=== PATIENT | female | born 1970 | race Caucasian/White ===

== ENCOUNTER → 2022-09-11 13:14 | Outpatient (CLI) | payer OTHER, MEDICAID, SELFPAY ==
--- NOTE | 2022-09-11 13:16 | DI.RAD.S_ITS ---
PROCEDURE: XR KNEE RT 3V INDICATIONS: Knee pain TECHNIQUE: 3 views of the knee were acquired. COMPARISON: None. FINDINGS: Bones: No fractures or dislocations. No suspicious bony lesions. There is mild medial femorotibial joint space narrowing seen, with associated remodeling changes including subchondral sclerosis and osteophyte formation along the jointline. Soft tissues: No significant joint effusion. No suspicious soft tissue calcifications. IMPRESSION: Mild degenerative changes are seen by plain film, without an acute posttraumatic abnormality. If it would be helpful for clinical management decision making, please consider a dedicated, scheduled knee MRI for further evaluation (assuming that there is no contraindication). Dictated by: Jayden Daley M.D. on 09/11/2022 at 17:24 Approved by: Jayden Daley M.D. on 09/11/2022 at 17:25
--- NOTE | 2022-09-11 13:16 | DI.RAD.S_ITS ---
PROCEDURE: XR WRIST RT MIN 3V INDICATIONS: Wrist pain TECHNIQUE: 4 views of the wrist were acquired. COMPARISON: [facility], [place], XR KNEE RT 3V, 09/11/2022, 13:18. [facility], , WRIST MINIMUM 3 VIEWS RIGHT, 03/08/2008, 10:21. FINDINGS: Bones: No fractures or dislocations. No suspicious bony lesions. Degenerative changes are seen, which are worst involving the radial aspect of the carpus. Scaphoid view: No navicular fractures are seen. Soft tissues: No suspicious soft tissue calcifications. IMPRESSION: No displaced fractures are seen. If there is snuffbox tenderness (or other clinical suspicion for a fracture not seen on these images) then a repeat examination would be recommended in 10 to 14 days, following splinting. Degenerative changes are seen, which are worst involving the radial aspect of the carpus. Dictated by: Jayden Daley M.D. on 09/11/2022 at 17:25 Approved by: Jayden Daley M.D. on 09/11/2022 at 17:26
== END ==
PROVIDERS: Family Provider Physician Assistant; PCP Physician Assistant; Referring Provider Nurse Practitioner Family; Visit Provider Nurse Practitioner Family
DX: M17.11 Unilateral primary osteoarthritis, right knee (principal); M25.531 Pain in right wrist; V89.2XXA Person injured in unspecified motor-vehicle accident, traffic, initial encounter
CPT/HCPCS: 73110; 73562

== ENCOUNTER → 2022-11-22 09:45 | Outpatient (CLI) | payer OTHER, MEDICAID, SELFPAY ==
--- NOTE | 2022-11-22 09:47 | DI.RAD.S_ITS ---
PROCEDURE: XR ANKLE RT MIN 3V INDICATIONS: right foot and ankle pain TECHNIQUE: 3 views of the ankle were acquired. COMPARISON: [facility], , XR FOOT RT MIN 3V, 11/22/2022, 9:54. FINDINGS: Bones: No fractures or dislocations. Ankle mortise is normally aligned. No suspicious bony lesions. Soft tissues: No tibiotalar joint effusion. Achilles tendon appears normal. Lateral soft tissue swelling. IMPRESSION: No evidence acute bony abnormality. If clinical suspicion and/or symptoms persist, further assessment with repeat plain films, or advanced imaging (e.g., CT, MRI, or bone scan) may be helpful for further assessment. Dictated by: Ziyad Hinkle M.D. on 11/22/2022 at 10:39 Approved by: Ziyad Hinkle M.D. on 11/22/2022 at 10:41
--- NOTE | 2022-11-22 09:47 | DI.RAD.S_ITS ---
PROCEDURE: XR FOOT RT MIN 3V INDICATIONS: right foot and ankle pain TECHNIQUE: 3 views of the foot were acquired. COMPARISON: None. FINDINGS: Bones: No fractures or dislocations. No suspicious bony lesions. 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 Soft tissues: No tibiotalar joint effusion. Achilles tendon appears normal. 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 No evidence acute bony abnormality. Dictated by: Ziyad Hinkle M.D. on 11/22/2022 at 10:37 Approved by: Ziyad Hinkle M.D. on 11/22/2022 at 10:39
[2022-11-22 12:05] LABS: Alanine Aminotransferase 20 IU/L (<35); Albumin Globulin Ratio 1.1 (1.0-2.8); Alkaline Phosphatase 121 U/L (38-126); Aspartate Aminotransferase 21 IU/L (14-36); BUN Creatinine Ratio 24.6 (6-22); Bilirubin Total 0.4 mg/dL (0.2-1.3); Blood Urea Nitrogen 17 mg/dL (7-17); Calcium 9.1 mg/dL (8.4-10.2); Carbon Dioxide 25 mmol/L (22-32); Chloride 103 mmol/L (98-107); Estimated Glomerular Filt Rate > 60 mL/min (>60); Globulin 3.7 g/dL (1.7-4.1); Glucose 100 mg/dL (70-100); HEMOLYSIS < 15 (0-50); Potassium 4.5 mmol/L (3.4-5.1); Sodium 138 mmol/L (137-145); Total Protein 7.7 g/dL (6.3-8.2); Uric Acid 4.2 mg/dL (2.5-6.2)
== END ==
PROVIDERS: Family Provider Physician Assistant; Referring Provider Registered Nurse; Visit Provider Registered Nurse
DX: M25.571 Pain in right ankle and joints of right foot (principal); M19.071 Primary osteoarthritis, right ankle and foot
CPT/HCPCS: 36415; 73610; 73630; 80053; 84550

== ENCOUNTER 2022-11-25 18:48 | Emergency (ER) | payer OTHER, MEDICAID, SELFPAY ==
[2022-11-25 19:07] VITALS: BP 157/76; PULSE 96; RESP 16; TEMP 37.2; O2SAT 99; BMI 28.7
--- NOTE | 2022-11-25 21:04 | ED.SKABFB ---
HPI - Skin/Abscess/Foreign Bdy General Chief complaint: Skin/Abscess/Foreign Body Stated complaint: Cellulitis Time Seen by Provider: 11/25/22 21:04 Source: patient Mode of arrival: Wheelchair Limitations: no limitations History of Present Illness HPI narrative: This is a 52-year-old female with history of hypertension, anxiety depression who presents with complaint of redness and pain in her right ankle. Pain started on Tuesday, redness started on Tuesday. Patient states she was seen by walk-in clinic had x-rays, lab work and was started on antibiotic. Record shows she was started on Bactrim. Her family circled the area of redness on her ankle Tuesday and it has continued to progress over the dorsum of her foot and she is starting to have pain progressing up her calf. Patient denies fevers. She is had chills. No chest pain or shortness of breath. No nausea or vomiting, no GI or urinary symptoms. Patient has not had any other changes. Patient does not recall any other injuries, no cuts scrapes. She is not had similar issues in the past. No known drug allergies. She does use tobacco, occasional alcohol, no illicit. Denies any injection or IV drugs. Related Data Home Medications Medication Instructions Recorded Confirmed Trazodone Hydrochloride (Trazodone 200 mg PO Q DAY ##0 08/04/10 11/22/22 HCl) lisinopril 20 mg tablet (Prinivil) 20 mg PO Q DAY ##0 10/01/10 11/22/22 alprazolam 0.5 mg tablet (Xanax) 0.5 mg PO Q4HP ##0 02/04/13 11/22/22 bupropion HCl 150 mg tablet,12 hr 150 mg PO BID ##0 02/07/13 11/22/22 sustained-release (Wellbutrin SR) ibuprofen 600 mg tablet 600 mg PO Q6HP ##0 02/07/13 11/22/22 Previous Rx's Medication Instructions Recorded cyclobenzaprine 5 mg tablet 5 mg PO TID PRN muscle spasm #20 09/11/22 tabs sulfamethoxazole 800 1 tab PO BID Cellulitis 10 days 11/22/22 mg-trimethoprim 160 mg tablet #20 tabs (Bactrim DS) clindamycin HCl 300 mg capsule 300 mg PO Q6H #40 caps 11/25/22 Allergies Allergy/AdvReac Type Severity Reaction Status Date / Time No Known Drug Allergies Allergy Verified 11/25/22 19:10 Review of Systems Review of Systems ROS Unobtainable: All systems reviewed & are unremarkable except as noted in HPI and below Patient History Surgical History Status post tubal ligation Social History Smoking Status: Current every day smoker Smoking Status: Current every day smoker tobacco type: cigarettes alcohol intake frequency: 0-2 drinks per day Substance Use Type: does not use Exam Narrative Exam Narrative: GENERAL: Alert and oriented x three, female in mild distress. HEENT: Head normocephalic, atraumatic, EOMI, pupils reactive, face symmetric, moist mucous membranes NECK: Supple, full range of motion CARDIOVASCULAR: Regular rate and rhythm without murmurs, rubs or gallops. RESPIRATORY: Breath sounds equal bilaterally, no wheezes rales or rhonchi. ABDOMEN: Soft, nontender. Normoactive bowel sounds all 4 quadrants. No guarding or rebound, rigidity, no mass : No CVA tenderness EXTREMITIES: Normal range of motion, no clubbing, patient has swelling over the lateral ankle, redness posterior tracking over the dorsum of the foot. There is some mild swelling. Patient is tender to touch. No fluctuance, no induration. Mild edema of the calf. Neurovascularly intact. 2+ dorsalis pedis. NEUROLOGICAL: Cranial nerves II through XII grossly intact. Moving all extremities SKIN: Warm, dry, no petechiae, no rashes or lesions otherwise noted. Initial Vital Signs Initial Vital Signs: Vital Signs Temperature 98.9 F 11/25/22 19:07 Pulse Rate 96 H 11/25/22 19:07 Respiratory Rate 16 11/25/22 19:07 Blood Pressure 157/76 H 11/25/22 19:07 Pulse Oximetry 99 11/25/22 19:07 Oxygen Delivery Method Room Air 11/25/22 19:07 Course Orders Ordered: ED Orders 11/25/22 21:13 US periph venous low extrem rt Stat 11/25/22 21:30 BMP [Basic Metabolic Panel] Stat CBC Auto Diff [Complete Blood Count AUTO DIFF] Stat Lactate (Lactic Acid) Stat Procalcitonin Stat 11/25/22 21:55 Blood Culture Stat Discontinued Medications Hydrocodone Bitart/Acetaminophen (Hydrocodone/Acet 5/325 Prepack) 1 bottle MISC SEEINSTR ONE Stop: 11/25/22 23:29 Last Admin: 11/25/22 23:31 Dose: 1 bottle Documented By: ANGIE Clindamycin Phosphate 900 mg/ (Sodium Chloride) 106 mls @ 106 mls/hr IV NOW ONE Stop: 11/25/22 21:14 Last Infusion: 11/25/22 22:58 Dose: 0 mls/hr Documented By: Admin: 11/25/22 21:57 Dose: 106 mls/hr Documented By: ANGIE Ketorolac Tromethamine (Ketorolac 30 Mg/Ml Vial) 15 mg IV NOW ONE Stop: 11/25/22 21:12 Last Admin: 11/25/22 21:38 Dose: 15 mg Documented By: LYDIA Vital Signs Vital signs: Vital Signs - 8 hr 11/25/22 23:36 Pulse Rate 83 Respiratory Rate 18 Blood Pressure 128/74 Pulse Oximetry 94 Oxygen Delivery Method Room Air MDM - Skin/Abscess/Foreign Bdy Lab Data 11/25/22 21:30 11/25/22 21:30 Labs: Lab Results 11/25/22 11/25/22 11/25/22 Range/Units 21:30 21:30 21:30 WBC 11.9 H (4.5-11.0) X10^3/uL RBC 4.35 (4.0-5.2) X10^6/uL Hgb 13.0 (12.0-16.0) g/dL Hct 38.7 (36-46) % MCV 89.1 (80-100) fL MCH 30.0 (26-34) PG MCHC 33.7 (30-36) % RDW 13.5 (11.6-14.8) % Plt Count 304 (150-400) X10^3/uL Neut % (Auto) 57.8 (50-75) % Lymph % (Auto) 29.9 (25-40) % Hidalgo % (Auto) 7.6 (3-14) % Eos % (Auto) 3.9 (2-4) % Baso % (Auto) 0.8 (0-2) % Neut # (Auto) 6900 (1441-8312) /uL Lymph # (Auto) 3600 (1928-8381) /uL Hidalgo # (Auto) 900 (0-900) /uL Eos # (Auto) 500 H (0-450) /uL Baso # (Auto) 100 (0-100) /uL Sodium 136 L (137-145) mmol/L Potassium 4.3 (3.4-5.1) mmol/L Chloride 104 (98-107) mmol/L Carbon Dioxide 25 (22-32) mmol/L BUN 19 H (7-17) mg/dL Creatinine 0.74 (0.52-1.04) mg/dL Estimated GFR > 60 (>60) mL/min BUN/Creatinine Ratio 25.7 H (6-22) Glucose 89 (70-100) mg/dL Lactate 0.8 (0.7-2.1) mmol/L Calcium 9.0 (8.4-10.2) mg/dL Procalcitonin 0.03 (<0.5) ng/mL Imaging Data US - DVT: Radiologist's Impression: Close Vascular Ultrasound (Signed) Waldo Rudd - 11/25/22 Foot X-Ray (Signed) Ziyad Hinkle - 11/22/22 Ankle X-Ray (Signed) Ziyad Hinkle - 11/22/22 Wrist X-Ray (Signed) Jayden Daley - 09/11/22 Knee X-Ray (Signed) Jayden Daley - 09/11/22 [place] [address] Ultrasound Report Signed Patient: Ana Cabrera MR#: [id number] : 1970 Acct:[id number] Age/Sex: 52 / F Date of Service: 11/25/22 Loc: ED Accession Number: [id number] ?? Procedure: US periph venous low extrem rt Ordering Provider: Alida Gamez D.O. PROCEDURE:? US PERIPH VENOUS LOW EXTREM RT ? INDICATIONS:? RIGHT ANKLE LATERAL PAIN, REDNESS, AND SWELLING. ? TECHNIQUE:? Real-time imaging, as well as color and pulse Doppler interrogation, were performed of the lower extremity deep veins from the inguinal ligament to the popliteal fossa.? ? COMPARISON:? None. ? FINDINGS:? The common femoral, femoral and popliteal veins are normally compressible, and free of intraluminal thrombus.? Color and pulse Doppler demonstrate normal phasic intraluminal flow.? There is normal augmentation response to distal compression maneuver. ? ? IMPRESSION:? ? 1. No evidence of deep venous thrombosis in the right lower extremity. ? ? Dictated by: Waldo Rudd M.D. on 11/25/2022 at 23:18 ? ? Approved by: Waldo Rudd M.D. on 11/25/2022 at 23:18?? [facility] Narrative Medical decision making narrative: This is a 52-year-old female presents with complaint of redness of the ankle and foot that has been progressive. She is been on oral Bactrim. No obvious source for infection. Patient has swelling and pain tracking up into the calf. DVT seems less likely but not impossible so ultrasound was ordered. Labs patient was given dose IV antibiotic. Patient has mild leukocytosis, procalcitonin negative, lactate negative,, BUN 19, 136 sodium. Patient has. Discussed with patient plan for discharge with new antibiotic.Discussed with patient she is had 1 round of antibiotics for about 5 days without any improvement, if she fails with 2nd round of antibiotic plan for return for likely admission. Patient prefers to return home, will change antibiotic with strict return precautions if not improving over the next 24-48 hours or if additional worsening. Discharge Plan Departure Patient Disposition: Home Clinical Impression: Cellulitis of leg, right Instructions: DI for Cellulitis -- Adult Activity Restrictions/Additional Instructions: Follow-up for recheck in the next 24-48 hours if your symptoms are not rapidly improving. Stop your current antibiotic of Bactrim. Start the new antibiotic he had been prescribed. Take antibiotics until completely gone. You may take pain medication 1-2 tablets every 6 hours as needed. This medication can make you sleepy do not drive, perform hazardous activities or make any major decisions while taking it. This medication will make you constipated please take a stool softener once to twice daily until stools are soft and regular. Prescription sent to [facility] in [place]. Please return for fevers if redness is spreading, if you are having increasing pain, swelling, nausea or vomiting, new chest pain or shortness of breath or other new or concerning changes. Prescriptions: New clindamycin HCl 300 mg capsule 300 mg PO Q6H Qty: 40 0RF No Action cyclobenzaprine 5 mg tablet 5 mg PO TID PRN (Reason: muscle spasm) Qty: 20 0RF Trazodone Hydrochloride (Trazodone HCl) 200 mg PO Q DAY Qty: 0 lisinopril [Prinivil] 20 MG tablet 20 mg PO Q DAY Qty: 0 alprazolam [Xanax] 0.5 MG tablet 0.5 mg PO Q4HP Qty: 0 bupropion HCl [Wellbutrin SR] 150 MG tablet extended release 12 hr 150 mg PO BID Qty: 0 ibuprofen 600 MG tablet 600 mg PO Q6HP Qty: 0 sulfamethoxazole-trimethoprim [Bactrim DS] 800-160 mg tablet 1 tab PO BID 10 Days Qty: 20 0RF Referrals: Miscellaneous,Doctor, MD [Primary Care Provider] - Stand Alone Forms: Patient Portal/API
--- NOTE | 2022-11-25 21:13 | DI.US.S_ITS ---
PROCEDURE: US PERIPH VENOUS LOW EXTREM RT INDICATIONS: RIGHT ANKLE LATERAL PAIN, REDNESS, AND SWELLING. TECHNIQUE: Real-time imaging, as well as color and pulse Doppler interrogation, were performed of the lower extremity deep veins from the inguinal ligament to the popliteal fossa. COMPARISON: None. FINDINGS: The common femoral, femoral and popliteal veins are normally compressible, and free of intraluminal thrombus. Color and pulse Doppler demonstrate normal phasic intraluminal flow. There is normal augmentation response to distal compression maneuver. IMPRESSION: 1. No evidence of deep venous thrombosis in the right lower extremity. Dictated by: Waldo Rudd M.D. on 11/25/2022 at 23:18 Approved by: Waldo Rudd M.D. on 11/25/2022 at 23:18
[2022-11-25] MEDS: KETOROLAC 30 MG/ML VIAL 15 MG IV (21:38)
[2022-11-25 21:39] LABS: Add Manual Diff / Slide Review NO; Basophils Absolute Auto 100 /uL (0-100); Basophils Percent Auto 0.8 % (0-2); Eosinophils Absolute Auto 500 /uL (0-450); Eosinophils Percent Auto 3.9 % (2-4); Hematocrit 38.7 % (36-46); Lymphocytes Absolute Auto 3600 /uL (1100-4500); Lymphocytes Percent Auto 29.9 % (25-40); Mean Corpuscular HGB Conc 33.7 % (30-36); Mean Corpuscular Volume 89.1 fL (80-100); Monocytes Absolute Auto 900 /uL (0-900); Monocytes Percent Auto 7.6 % (3-14); Neutrophils Absolute Auto 6900 /uL (1500-7000); Neutrophils Percent Auto 57.8 % (50-75); Platelet Count 304 X10^3/uL (150-400); Red Blood Cell Count 4.35 X10^6/uL (4.0-5.2); Red Cell Distribution Width 13.5 % (11.6-14.8); White Blood Cell Count 11.9 X10^3/uL (4.5-11.0)
[2022-11-25 21:48] LABS: Lactate (Lactic Acid) 0.8 mmol/L (0.7-2.1)
[2022-11-25 21:49] LABS: BUN Creatinine Ratio 25.7 (6-22); Blood Urea Nitrogen 19 mg/dL (7-17); Carbon Dioxide 25 mmol/L (22-32); Chloride 104 mmol/L (98-107); Estimated Glomerular Filt Rate > 60 mL/min (>60); Glucose 89 mg/dL (70-100); HEMOLYSIS < 15 (0-50); Potassium 4.3 mmol/L (3.4-5.1); Sodium 136 mmol/L (137-145)
[2022-11-25] MEDS: CLINDAMYCIN 900 MG in SODIUM CHLORIDE 0.9% 100 ML 106 MG IV (21:57)
[2022-11-25 22:06] LABS: Procalcitonin 0.03 ng/mL (<0.5)
[2022-11-25] MEDS: HYDROCODONE/ACET 5/325 PREPACK 1 BOTTLE MISC (23:31)
[2022-11-25 23:36] VITALS: BP 128/74; PULSE 83; RESP 18; O2SAT 94
== END 2022-11-25 23:36 | disposition home or self-care (01) ==
PROVIDERS: Emergency Provider Emergency Medicine; Family Provider Physician Assistant
DX: L03.115 Cellulitis of right lower limb (principal); D72.829 Elevated white blood cell count, unspecified; Z79.899 Other long term (current) drug therapy
CPT/HCPCS: 36415; 80048; 83605; 84145; 85025; 87040; 93971; 96365; 96375; 99284; J1885; S0077

== ENCOUNTER 2023-01-18 04:42 | Emergency (ER) | payer OTHER, MEDICAID, SELFPAY ==
[2023-01-18 04:49] VITALS: BP 172/91; PULSE 104; RESP 20; TEMP 36.8; O2SAT 100; BMI 28.1
--- NOTE | 2023-01-18 04:56 | ED_ITS ---
HPI - Animal Bite General Chief Complaint: Animal Bite Stated Complaint: stung or bite by something on rt knee Time Seen by Provider: 01/18/23 04:56 Source: patient and family Mode of arrival: Wheelchair History of Present Illness HPI narrative: 53-year-old woman with a history of anxiety depression, alcohol use disorder who presents with right knee pain. She states she was bit by a wasp approximately 36 hours ago and it has continued to increase in pain, redness, warmth she took ibuprofen yesterday and found that it was somewhat effective. She did 2 shots of Tequila about 4 hours ago and found that that was not effective she tried some baking soda paste over the knee and found that that was not effective. She comes in for further evaluation. She is slightly intoxicated, obviously anxious hurting with dramatic affect of behavior and complaints of pain. She does not note fevers, dyspnea, palpitations, dizziness weakness, nausea vomiting or diarrhea. Related Data Home Medications Medication Instructions Recorded Confirmed Trazodone Hydrochloride (Trazodone 200 mg PO Q DAY ##0 08/04/10 11/22/22 HCl) lisinopril 20 mg tablet (Prinivil) 20 mg PO Q DAY ##0 10/01/10 11/22/22 alprazolam 0.5 mg tablet (Xanax) 0.5 mg PO Q4HP ##0 02/04/13 11/22/22 bupropion HCl 150 mg tablet,12 hr 150 mg PO BID ##0 02/07/13 11/22/22 sustained-release (Wellbutrin SR) ibuprofen 600 mg tablet 600 mg PO Q6HP ##0 02/07/13 11/22/22 Previous Rx's Medication Instructions Recorded cyclobenzaprine 5 mg tablet 5 mg PO TID PRN muscle spasm #20 09/11/22 tabs clindamycin HCl 300 mg capsule 300 mg PO Q6H #40 caps 11/25/22 clindamycin HCl 300 mg capsule 300 mg PO Q6H 7 days #40 caps 01/18/23 Allergies Allergy/AdvReac Type Severity Reaction Status Date / Time No Known Drug Allergies Allergy Verified 11/25/22 19:10 Review of Systems Review of Systems Narrative: Pertinent positive and negative findings as per HPI Patient History Medical History (Updated 01/18/23 @ 05:19 by Adirana Fields MD) Alcoholism Anxiety and depression Surgical History Status post tubal ligation Social History Smoking Status: Current every day smoker Smoking Status: Current every day smoker tobacco type: cigarettes alcohol intake frequency: 0-2 drinks per day Substance Use Type: does not use Exam Initial Vital Signs Initial Vital Signs: Vital Signs Temperature 98.3 F 01/18/23 04:49 Pulse Rate 104 H 01/18/23 04:49 Respiratory Rate 20 01/18/23 04:49 Blood Pressure 172/91 H 01/18/23 04:49 Pulse Oximetry 100 01/18/23 04:49 Oxygen Delivery Method Room Air 01/18/23 04:49 General: Healthy appearing, crying and anxious secondary to pain but Able to give a complete and coherent history. HEENT: Moist mucous membranes, slightly injected sclera sclera with reactive pupils, alcohol on breath Respiratory: Lungs with Full and symmetrical air movement Cardiac: Regular rate and rhythm no murmurs no bruits Abdomen: Soft, nontender, good bowel tones, no flank pain Skin: Cellulitic area over the right knee Extremities: Right knee with an area of redness and warmth over the knee itself. There is mild swelling superficially that does not appear to be intra- articular or bursal. There is no tenderness behind the knee and no tenderness to lateral or medial ligaments. There is no obvious skin breakdown, puncture wound or drainage point. The redness is extending over the lateral aspect of the knee. There is no significant pain or tenderness in the calf, normal range of motion at the ankle. She has minor inguinal adenopathy on the right side. There is no lymphangitic streaking. Psych: Tearful but cooperative Course Vital Signs Vital signs: Vital Signs - 8 hr 01/18/23 04:49 Temperature 98.3 F Pulse Rate 104 H Respiratory Rate 20 Blood Pressure 172/91 H Pulse Oximetry 100 Oxygen Delivery Method Room Air MDM - Animal Bite MDM Narrative Medical decision making narrative: CC: Right knee pain after bug bite Complicating co-morbidities: Anxiety, depression, history of alcohol use disorder Data collected from: patient, Social determinants of health that may influence the patients condition: Anxiety Differential considered: Bug bite, allergic reaction, MRSA, suprapatellar prepatellar bursitis, intra-articular infection, cellulitis Exam documented above, pertinent findings include: Superficial cellulitis over the right knee that does not appear to be intra-articular or intra bursal. No obvious area of abscess or fluctuance that would require draining this point. No lymphangitic streaking Treatments: IM Toradol, p.o. Tylenol, p.o. clindamycin Discussion: 53-year-old woman who reports an insect bite to the right knee now with surrounding erythema and what appears to be cellulitis without abscess. Similar episode in November at her right ankle that responded nicely to clindamycin so will begin clindamycin again. With presentation today patient is moderately intoxicated, significantly anxious vacillating on offered options for pain control, last pain medication at home was ibuprofen 24 hours ago and she did not take anymore because she ?isn't a pill Popper?. At this time with no signs of abscess, intra-arterial infection, other findings that would require additional lab work imaging studies or hospital admission I believe she is safe for home discharge and will benefit from clindamycin. Initial heart rate and hypertension I believe her related to her recent alcohol use and anxiety. At this time I am not seeing any other evidence for sepsis, DVT or life-threatening abnormality Have asked her to return if she is not improving. Discharge Plan Departure Patient Disposition: Home Clinical Impression: Cellulitis Qualifiers: Site of cellulitis: extremity Site of cellulitis of extremity: lower extremity Laterality: right Qualified Code(s): L03.115 - Cellulitis of right lower limb Instructions: DI for Cellulitis -- Adult Activity Restrictions/Additional Instructions: Thank you for coming in tonight I am sorry that you are suffering so much with the pain from the developing cellulitis over your right knee. Fortunately, there does not appear to be any abscess, infection that is extending into the bursa or into the joint space. I do not suspect a blood clot in your leg. As the clindamycin worked well with similar skin infection almost 2 months ago I am going to suggest that we continue that. I have given you a prescription for clindamycin to be taken 4 times a day for 10 days. Using 400 mg of ibuprofen (2 [id number] pills) and 1 Tylenol every 6 hours can be very helpful in controlling pain. Ice to the area and keeping that the elevated may be helpful. If you feel that it is getting worse, if it seems to be developing an abscess, your developing fevers or chills or otherwise feeling worse you do need to return to the ER Prescriptions: New clindamycin HCl 300 mg capsule 300 mg PO Q6H 7 Days Qty: 40 0RF No Action cyclobenzaprine 5 mg tablet 5 mg PO TID PRN (Reason: muscle spasm) Qty: 20 0RF Trazodone Hydrochloride (Trazodone HCl) 200 mg PO Q DAY Qty: 0 lisinopril [Prinivil] 20 MG tablet 20 mg PO Q DAY Qty: 0 alprazolam [Xanax] 0.5 MG tablet 0.5 mg PO Q4HP Qty: 0 bupropion HCl [Wellbutrin SR] 150 MG tablet extended release 12 hr 150 mg PO BID Qty: 0 ibuprofen 600 MG tablet 600 mg PO Q6HP Qty: 0 clindamycin HCl 300 mg capsule 300 mg PO Q6H Qty: 40 0RF Referrals: Miscellaneous,Doctor, MD [Primary Care Provider] - Stand Alone Forms: Patient Portal/API
[2023-01-18] MEDS: ACETAMINOPHEN 325 MG TABLET PO (05:09)
[2023-01-18] MEDS: CLINDAMYCIN 150 MG CAPSULE 300 MG PO (05:09)
[2023-01-18] MEDS: IBUPROFEN 400 MG TABLET PO (05:17)
[2023-01-18 05:28] VITALS: BP 154/98; PULSE 92; RESP 18; O2SAT 96
== END 2023-01-18 05:28 | disposition home or self-care (01) ==
PROVIDERS: Emergency Provider Emergency Medicine; Family Provider Physician Assistant
DX: L03.115 Cellulitis of right lower limb (principal); W57.XXXA Bitten or stung by nonvenomous insect and other nonvenomous arthropods, initial encounter
CPT/HCPCS: 99283; J1885

== ENCOUNTER 2023-01-20 10:23 | Emergency (ER) | payer OTHER, MEDICAID, SELFPAY ==
[2023-01-20 10:34] VITALS: BP 157/80; PULSE 99; RESP 24; TEMP 36.7; O2SAT 100; BMI 29.1
--- NOTE | 2023-01-20 10:45 | PC.NURSE ---
Pt has swelling right knee that is getting worse but now pain is radiating to right charles.
--- NOTE | 2023-01-20 11:11 | ED.RECABL ---
HPI - Recheck/Abnormal Lab/Rx General Chief Complaint: Recheck/Abnormal Lab/Rx Stated Complaint: Cellulitis not getting better Time Seen by Provider: 01/20/23 10:37 Source: patient Mode of arrival: Wheelchair History of Present Illness HPI narrative: Patient is a 53-year-old female who was seen here a couple days ago for infection of her right knee. Was diagnosed with cellulitis. Was sent home on clindamycin. She states that she has taken a total of about 2 days' worth of the course of medications. Has been tolerating it well. She states that the redness has actually improved however she thinks that the swelling maybe a little bit worse and she is not getting pain upper thigh and down charles. It does hurt for her to walk but she can bend her knee. No fevers. No chest pain. No nausea vomiting. No other new symptoms. Related Data Home Medications Medication Instructions Recorded Confirmed Trazodone Hydrochloride (Trazodone 200 mg PO Q DAY ##0 08/04/10 11/22/22 HCl) lisinopril 20 mg tablet (Prinivil) 20 mg PO Q DAY ##0 10/01/10 11/22/22 alprazolam 0.5 mg tablet (Xanax) 0.5 mg PO Q4HP ##0 02/04/13 11/22/22 bupropion HCl 150 mg tablet,12 hr 150 mg PO BID ##0 02/07/13 11/22/22 sustained-release (Wellbutrin SR) ibuprofen 600 mg tablet 600 mg PO Q6HP ##0 02/07/13 11/22/22 Previous Rx's Medication Instructions Recorded cyclobenzaprine 5 mg tablet 5 mg PO TID PRN muscle spasm #20 09/11/22 tabs clindamycin HCl 300 mg capsule 300 mg PO Q6H #40 caps 11/25/22 clindamycin HCl 300 mg capsule 300 mg PO Q6H 7 days #40 caps 01/18/23 clindamycin HCl 300 mg capsule 600 mg PO Q8H 7 days #42 caps 01/20/23 sulfamethoxazole 800 1 tab PO TID 2 weeks #42 tabs 01/20/23 mg-trimethoprim 160 mg tablet (Bactrim DS) Allergies Allergy/AdvReac Type Severity Reaction Status Date / Time No Known Drug Allergies Allergy Verified 01/20/23 10:34 Review of Systems Constitutional Constitutional: Reports system reviewed and no additional complaints, except as documented Musculoskeletal Musculoskeletal: Reports system reviewed and no additional complaints, except as documented Integumentary/Breasts Skin/Breast: Reports system reviewed and no additional complaints, except as documented Neurologic Neurologic: Reports system reviewed and no additional complaints, except as documented Hematologic/Lymphatic On Anticoagulants: No Patient History Medical History Alcoholism Anxiety and depression Surgical History Status post tubal ligation Social History Smoking Status: Current every day smoker Smoking Status: Current every day smoker tobacco type: cigarettes alcohol intake frequency: a few times a week Substance Use Type: does not use Exam Initial Vital Signs Initial Vital Signs: Vital Signs Temperature 98.0 F 01/20/23 10:34 Pulse Rate 99 H 01/20/23 10:34 Respiratory Rate 24 01/20/23 10:34 Blood Pressure 157/80 H 01/20/23 10:34 Pulse Oximetry 100 01/20/23 10:34 Oxygen Delivery Method Room Air 01/20/23 10:34 Const General: cooperative and comfortable Skin Other: Mild redness over the anterior portion of the right knee. Neuro Sensory Exam: no sensory deficits noted Extrem Other: Patient is able to flex and extend her knee somewhat and she describes the pain in the anterior portion of the knee. There is a small effusion in the right knee. Course Vital Signs Vital signs: Vital Signs - 8 hr 01/20/23 10:34 Temperature 98.0 F Pulse Rate 99 H Respiratory Rate 24 Blood Pressure 157/80 H Pulse Oximetry 100 Oxygen Delivery Method Room Air MDM - Recheck/Abnormal Lab/Rx Medical Records Attestation: I reviewed the patient's medical records. MDM Narrative Medical decision making narrative: Review of the patient's medical record shows that there was little concerned about a septic joint or bursitis and more concern about cellulitis which is how she was treated. My exam today I am somewhat more concerned about a bursitis versus a cellulitis. I continued to have low concern that this is a septic joint. I discuss the possibility of doing an arthrocentesis in the risks and benefits of this and I feel that the risks outweigh any sort of benefit. I also feel that an x-ray is unhelpful in this situation. No indication for admission to the hospital for IV antibiotics. I would a long discussion with the patient regarding changing antibiotics but she is only been on his current antibiotics for 48 hours. The plan will be is to change her from 300 mg 4 times a day to 600 mg 3 times a day and extend this out for another 7 days. She was also given a prescription for Bactrim that if her symptoms are not improving in the next couple days she could stop taking the clindamycin and start taking the Bactrim. She was also given strict return precautions that if her symptoms significantly worsen that she does need to return to the emergency department for further evaluation. She expressed understanding and agreement. Discharge Plan Departure Patient Disposition: Home Clinical Impression: Bursitis Instructions: Bursitis Activity Restrictions/Additional Instructions: The plan will be is to have you to continue to take the clindamycin however going to have you increase this to 2 tablets (600 mg) but only take it 3 times a day. You were given a prescription for this for the remainder of the treatment. A 2nd prescription is printed for you however you need to hold on filling this for the next couple days to see if continue treatment with the clindamycin would be helpful. If things significantly worsen you do need to return to the emergency department. Prescriptions: New clindamycin HCl 300 mg capsule 600 mg PO Q8H 7 Days Qty: 42 0RF sulfamethoxazole-trimethoprim [Bactrim DS] 800-160 mg tablet 1 tab PO TID 14 Days Qty: 42 0RF No Action cyclobenzaprine 5 mg tablet 5 mg PO TID PRN (Reason: muscle spasm) Qty: 20 0RF Trazodone Hydrochloride (Trazodone HCl) 200 mg PO Q DAY Qty: 0 lisinopril [Prinivil] 20 MG tablet 20 mg PO Q DAY Qty: 0 alprazolam [Xanax] 0.5 MG tablet 0.5 mg PO Q4HP Qty: 0 bupropion HCl [Wellbutrin SR] 150 MG tablet extended release 12 hr 150 mg PO BID Qty: 0 ibuprofen 600 MG tablet 600 mg PO Q6HP Qty: 0 clindamycin HCl 300 mg capsule 300 mg PO Q6H Qty: 40 0RF clindamycin HCl 300 mg capsule 300 mg PO Q6H 7 Days Qty: 40 0RF Referrals: Miscellaneous,Doctor, MD [Primary Care Provider] - Stand Alone Forms: Patient Portal/API
[2023-01-20 11:31] VITALS: BP 123/90; PULSE 90; RESP 12; O2SAT 98
== END 2023-01-20 11:33 | disposition home or self-care (01) ==
PROVIDERS: Emergency Provider Emergency Medicine; Family Provider Physician Assistant
DX: M70.51 Other bursitis of knee, right knee (principal); Y93.9 Activity, unspecified
CPT/HCPCS: 99281; 99283

== ENCOUNTER → 2023-05-18 11:47 | Outpatient (CLI) | payer OTHER, MEDICAID, SELFPAY ==
[2023-05-21 16:32] LABS: Candida species Negative (Negative); Gardnerella vaginalis Positive (Negative); Trichomoas vaginalis Negative (Negative)
== END ==
PROVIDERS: Student in an Organized Health Care Education/Training Program; Family Provider Physician Assistant; PCP Registered Nurse Diabetes Educator; Visit Provider Registered Nurse Diabetes Educator
DX: N89.8 Other specified noninflammatory disorders of vagina (principal)
CPT/HCPCS: 87210; 87220; 87480; 87510; 87660

== ENCOUNTER → 2023-06-16 14:20 | Outpatient (CLI) | payer OTHER, MEDICAID, SELFPAY ==
[2023-06-16 15:12] LABS: Hematocrit 40.2 % (36-46); Hemoglobin 13.5 g/dL (12.0-16.0); Mean Corpuscular HGB Conc 33.6 % (30-36); Mean Corpuscular Hemoglobin 30.7 PG (26-34); Mean Corpuscular Volume 91.3 fL (80-100); Platelet Count 262 X10^3/uL (150-400); Red Blood Cell Count 4.41 X10^6/uL (4.0-5.2); Red Cell Distribution Width 13.1 % (11.6-14.8); White Blood Cell Count 8.2 X10^3/uL (4.5-11.0)
[2023-06-16 15:45] LABS: Alanine Aminotransferase 20 IU/L (<35); Albumin 3.7 g/dL (3.5-5.0); Alkaline Phosphatase 100 U/L (38-126); Aspartate Aminotransferase 28 IU/L (14-36); BUN Creatinine Ratio 23.2 (6-22); Bilirubin Total 0.4 mg/dL (0.2-1.3); Blood Urea Nitrogen 16 mg/dL (7-17); Calcium 9.2 mg/dL (8.4-10.2); Carbon Dioxide 28 mmol/L (22-32); Chloride 103 mmol/L (98-107); Cholesterol 196 mg/dL (140-199); Estimated Glomerular Filt Rate > 60 mL/min (>60); Globulin 3.6 g/dL (1.7-4.1); Glucose 138 mg/dL (70-100); HDL Cholesterol 54 mg/dL (40-60); HEMOLYSIS < 15 (0-50); LDL Cholesterol Calculated 91 mg/dL (<100); Potassium 4.1 mmol/L (3.4-5.1); Sodium 137 mmol/L (137-145); Total Protein 7.3 g/dL (6.3-8.2); Triglycerides 257 mg/dL (35-150)
[2023-06-16 16:19] LABS: TSH w/ Reflex to FT4 1.17 uIU/mL (0.47-4.68)
== END ==
PROVIDERS: Family Provider Physician Assistant; PCP Registered Nurse Diabetes Educator; Referring Provider Registered Nurse Diabetes Educator; Visit Provider Registered Nurse Diabetes Educator
DX: I10 Essential (primary) hypertension (principal); E16.2 Hypoglycemia, unspecified; F10.20 Alcohol dependence, uncomplicated
CPT/HCPCS: 36415; 80053; 80061; 84443; 85027

== ENCOUNTER → 2023-07-18 08:32 | Outpatient (CLI) | payer OTHER, MEDICAID, SELFPAY ==
[2023-07-18 10:20] LABS: Add Manual Diff / Slide Review NO; Basophils Absolute Auto 100 /uL (0-100); Basophils Percent Auto 0.7 % (0-2); Eosinophils Absolute Auto 500 /uL (0-450); Eosinophils Percent Auto 5.1 % (2-4); Hematocrit 40.8 % (36-46); Hemoglobin 13.8 g/dL (12.0-16.0); Lymphocytes Absolute Auto 3000 /uL (1100-4500); Lymphocytes Percent Auto 28.1 % (25-40); Mean Corpuscular HGB Conc 33.9 % (30-36); Mean Corpuscular Hemoglobin 30.9 PG (26-34); Mean Corpuscular Volume 91.1 fL (80-100); Monocytes Absolute Auto 900 /uL (0-900); Monocytes Percent Auto 8.3 % (3-14); Neutrophils Absolute Auto 6100 /uL (1500-7000); Neutrophils Percent Auto 57.8 % (50-75); Platelet Count 290 X10^3/uL (150-400); Red Blood Cell Count 4.48 X10^6/uL (4.0-5.2); Red Cell Distribution Width 13.2 % (11.6-14.8); White Blood Cell Count 10.6 X10^3/uL (4.5-11.0)
[2023-07-18 10:46] LABS: Hemoglobin A1C% w Est Avg Glu 5.6 % (4.0-6.0)
[2023-07-18 10:50] LABS: Glucose 103 mg/dL (70-100)
== END ==
PROVIDERS: Family Provider Physician Assistant; PCP Registered Nurse Diabetes Educator; Referring Provider Registered Nurse Diabetes Educator; Visit Provider Registered Nurse Diabetes Educator
DX: K04.7 Periapical abscess without sinus (principal); R73.9 Hyperglycemia, unspecified
CPT/HCPCS: 36415; 82947; 83036; 85025

== ENCOUNTER → 2023-07-27 14:08 | Outpatient (CLI) | payer OTHER, MEDICAID, SELFPAY ==
[2023-07-27 14:53] LABS: Influenza A - CEPHEID Flu A NEGATIVE (NEGATIVE); Influenza B - CEPHEID Flu B NEGATIVE (NEGATIVE); Respiratory Syncytial Virus Negative (Negative)
[2023-07-27 14:57] LABS: COVID-19 CEPHEID 4-PLEX PCR Negative (Negative)
== END ==
PROVIDERS: Family Provider Physician Assistant; PCP Registered Nurse Diabetes Educator; Visit Provider Nurse Practitioner Family
DX: R05.9 Cough, unspecified (principal); J02.9 Acute pharyngitis, unspecified
CPT/HCPCS: 0241U

== ENCOUNTER → 2023-08-11 10:39 | Outpatient (CLI) | payer OTHER, MEDICAID, SELFPAY | PROVIDERS: Family Provider Physician Assistant; PCP Registered Nurse Diabetes Educator; Visit Provider Physician Assistant | DX: R30.0 Dysuria (principal); R35.0 Frequency of micturition | CPT/HCPCS: 81002; 87077; 87086; 87186 ==

== ENCOUNTER → 2024-01-22 15:06 | Outpatient (CLI) | payer OTHER, MEDICAID, SELFPAY | PROVIDERS: Family Provider Physician Assistant; PCP Registered Nurse Diabetes Educator; Visit Provider Nurse Practitioner Family | DX: R30.0 Dysuria (principal) | CPT/HCPCS: 87086 ==

== ENCOUNTER → 2024-01-22 15:47 | Outpatient (CLI) | payer OTHER, MEDICAID, SELFPAY ==
--- NOTE | 2024-01-22 15:49 | DI.RAD.S_ITS ---
PROCEDURE: XR HAND LT MIN 3V INDICATIONS: Bilateral thumb/hand pain TECHNIQUE: 3 views of the hand(s) acquired. COMPARISON: None. FINDINGS: Bones: No fractures or dislocations. Carpal bones are normally aligned. No suspicious bony lesions. 1st CMC joint space narrowing with associated osteophytosis and sclerosis. Soft tissues: No suspicious soft tissue calcifications. 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 Dictated by: Florencio Kim M.D. on 01/22/2024 at 20:41 Approved by: Florencio Kim M.D. on 01/22/2024 at 20:41
--- NOTE | 2024-01-22 15:49 | DI.RAD.S_ITS ---
PROCEDURE: XR HAND RT MIN 3V INDICATIONS: Bilateral thumb/hand pain TECHNIQUE: 3 views of the hand(s) acquired. COMPARISON: None. FINDINGS: Bones: No fractures or dislocations. Carpal bones are normally aligned. No suspicious bony lesions. 1st CMC joint space narrowing with associated osteophytosis and sclerosis. Soft tissues: No suspicious soft tissue calcifications. 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 Dictated by: Florencio Kim M.D. on 01/22/2024 at 20:41 Approved by: Florencio Kim M.D. on 01/22/2024 at 20:42
== END ==
PROVIDERS: Family Provider Physician Assistant; PCP Registered Nurse Diabetes Educator; Referring Provider Nurse Practitioner Family; Visit Provider Nurse Practitioner Family
DX: M18.0 Bilateral primary osteoarthritis of first carpometacarpal joints (principal); M79.641 Pain in right hand; M79.642 Pain in left hand; R30.0 Dysuria
CPT/HCPCS: 73130; 81002; 87077; 87086; 87186

== ENCOUNTER 2024-05-11 09:49 | Emergency (ER) | payer OTHER, MEDICAID, SELFPAY ==
[2024-05-11] VITALS (10 sets, daily range): BP systolic 98–131; BP diastolic 55–62; PULSE 66–83; RESP 16; TEMP 36.6; O2SAT 94–99; BMI 30.7
--- NOTE | 2024-05-11 10:57 | ED_ITS ---
HPI - GI Bleed General Chief complaint: GI Bleed Stated complaint: rectal bleeding Time Seen by Provider: 05/11/24 10:00 History of Present Illness HPI Narrative: 54-year-old woman with a history of alcohol use disorder comes in with rectal bleeding. She describes some mucousy bright red blood after a stool this morning and has some pictures to document this. There are not large clots. She feels like she has to have another bowel movement and is concerned it is simply clots. She has not been having any nausea, no emesis no prior history of GI bleeding. She notes that over the last week she actually has been a bit dizzy. She and her primary care doctor have been discussing outpatient treatment for her alcohol use disorder and she is considering going for detox day at [facility]. She did have some alcohol prior to today's visit. She did also take her blood pressure medication. She notes that she has been using significantly less methamphetamine recently. Initial blood pressure was slightly low, it may be that she does not need as much blood pressure medication is she is currently taking. She does agree to blood work to look for acute anemia, renal and liver issues. Related Data Home Medications Medication Instructions Recorded Confirmed metronidazole 1 % topical gel 1 applic topical DAILY 04/17/24 04/17/24 Previous Rx's Medication Instructions Recorded hydrochlorothiazide 25 mg tablet 25 mg PO DAILY #90 tabs 07/12/23 lisinopril 40 mg tablet 40 mg PO DAILY #90 tabs 07/12/23 gabapentin 300 mg capsule 300 mg PO BEDTIME #90 caps 11/28/23 duloxetine 60 mg capsule,delayed 120 mg (2 x 60 mg) PO QAM #180 caps 02/13/24 release omeprazole 20 mg capsule,delayed 20 mg PO DAILY #90 caps 03/08/24 release buspirone 15 mg tablet 15 mg PO TID #90 tabs 04/17/24 metoprolol succinate 25 mg 25 mg PO DAILY #30 tabs 04/17/24 tablet,extended release 24 hr hydrocortisone 2.5 % topical cream 1 applic AK QD-BID PRN hemorrhoids 05/11/24 with perineal applicator #30 grams (Anusol-HC) Allergies Allergy/AdvReac Type Severity Reaction Status Date / Time No Known Drug Allergies Allergy Verified 04/17/24 14:30 Review of Systems Review of Systems Narrative: Pertinent positive and negative findings as per HPI Patient History Medical History Prediabetes Dyslipidemia Fibromyalgia RLS (restless legs syndrome) History of abnormal cervical Pap smear Essential hypertension Chronic post-traumatic stress disorder (PTSD) Major depressive disorder, recurrent severe without psychotic features Anxiety Alcoholism Anxiety and depression Surgical History Status post creation of urethral sling by suprapubic approach Status post tubal ligation Social History Smoking Status: Current every day smoker Smoking Status: Current every day smoker tobacco type: cigarettes alcohol intake frequency: a few times a week Substance Use Type: does not use Exam Initial Vital Signs Initial Vital Signs: Vital Signs Pulse Rate 83 05/11/24 10:01 Pulse Oximetry 96 05/11/24 10:01 General: Healthy appearing, in no acute distress. Able to give a complete and coherent history. Well-nourished well-developed HEENT: Moist mucous membranes, normal sclera with reactive pupils, Respiratory: Lungs are clear to auscultation, no wheezing no rales no rhonchi. Full and symmetrical air movement Cardiac: Regular rate and rhythm no murmurs no bruits Abdomen: Soft, nontender, good bowel tones, no flank pain Rectal exam: She has 2 small internal hemorrhoids that do not appear to be actively bleeding and are not thrombosed. No external hemorrhoids. No rectal fissures, no blood in the rectal vault Skin: Warm and dry, no rashes Neurologic: Grossly neurologically intact with no obvious asymmetries or abnormalities Extremities: No trauma, well perfused Psych: Cooperative, appropriate insight and affect Course Orders Ordered: ED Orders 05/11/24 12:26 Complete Blood Count AUTO DIFF Stat Comprehensive Metabolic Panel Stat Ethanol (ETOH) Stat Lactate (Lactic Acid) Stat Lipase Stat Magnesium Stat Type and Screen Stat Discontinued Medications Sodium Chloride (Normal Saline 0.9%) 1,000 mls @ 1,000 mls/hr IV BOLUS ONE Stop: 05/11/24 12:12 Last Admin: 05/11/24 12:37 Dose: Not Given Documented By: XANDER Lorazepam (Lorazepam 0.5 Mg Tablet) 1 mg PO NOW ONE Stop: 05/11/24 11:39 Last Admin: 05/11/24 11:43 Dose: 1 mg Documented By: [facility] Vital Signs Vital signs: Vital Signs - 8 hr 05/11/24 10:01 05/11/24 10:04 05/11/24 10:30 Temperature 97.9 F Pulse Rate 83 83 78 Respiratory Rate 16 Blood Pressure 131/62 Pulse Oximetry 96 99 94 Oxygen Delivery Method Room Air 05/11/24 10:30 05/11/24 11:00 05/11/24 11:00 Temperature Pulse Rate 75 Respiratory Rate Blood Pressure 105/57 L 99/58 L Pulse Oximetry 97 Oxygen Delivery Method 05/11/24 11:04 05/11/24 11:04 05/11/24 11:30 Temperature Pulse Rate 78 68 Respiratory Rate Blood Pressure 98/55 L Pulse Oximetry 97 99 Oxygen Delivery Method 05/11/24 12:00 05/11/24 12:30 Temperature Pulse Rate 66 67 Respiratory Rate Blood Pressure Pulse Oximetry 99 98 Oxygen Delivery Method MDM - GI Bleed Lab Data 05/11/24 12:26 05/11/24 12:26 Labs: Lab Results 05/11/24 Range/Units 12:26 WBC 8.6 (4.5-11.0) X10^3/uL RBC 4.38 (4.0-5.2) X10^6/uL Hgb 13.2 (12.0-16.0) g/dL Hct 39.7 (36-46) % MCV 90.5 (80-100) fL MCH 30.2 (26-34) PG MCHC 33.4 (30-36) % RDW 13.2 (11.6-14.8) % Plt Count 274 (150-400) X10^3/uL Neut % (Auto) 45.2 L (50-75) % Lymph % (Auto) 39.7 (25-40) % Esmeralda % (Auto) 8.8 (3-14) % Eos % (Auto) 5.5 H (2-4) % Baso % (Auto) 0.8 (0-2) % Neut # (Auto) 3900 (8835-2320) /uL Lymph # (Auto) 3400 (0579-1897) /uL Esmeralda # (Auto) 800 (0-900) /uL Eos # (Auto) 500 H (0-450) /uL Baso # (Auto) 100 (0-100) /uL Sodium 137 (137-145) mmol/L Potassium 4.0 (3.4-5.1) mmol/L Chloride 106 (98-107) mmol/L Carbon Dioxide 26 (22-32) mmol/L BUN 26 H (7-17) mg/dL Creatinine 0.91 (0.52-1.04) mg/dL Estimated GFR > 60 (>60) mL/min BUN/Creatinine Ratio 28.6 H (6-22) Glucose 98 (70-100) mg/dL Lactate 0.8 (0.7-2.1) mmol/L Calcium 9.3 (8.4-10.2) mg/dL Magnesium 2.0 (1.6-2.3) mg/dL Total Bilirubin 0.4 (0.2-1.3) mg/dL AST 30 (14-36) IU/L ALT 24 (<35) IU/L Alkaline Phosphatase 124 (38-126) U/L Total Protein 7.0 (6.3-8.2) g/dL Albumin 3.9 (3.5-5.0) g/dL Globulin 3.1 (1.7-4.1) g/dL Albumin/Globulin Ratio 1.3 (1.0-2.8) Lipase 110 (23-300) U/L Ethyl Alcohol < 10 ( - 10) mg/dL Blood Type O Positive Antibody Screen Negative MDM Narrative Medical decision making narrative: CC: Bright red blood per rectum Complicating co-morbidities: Alcohol use disorder, hypertension, methamphetamine use, anxiety and depression Data collected from: patient Social determinants of health that may influence the patients condition: Strongly considering inpatient detox for her alcohol use disorder Medical records reviewed: Primary care notes from the last couple of months focusing her alcoholism are reviewed Differential considered: Hemorrhoidal bleeding, diverticular bleeding, upper GI bleeding, coagulopathy Exam documented above, pertinent findings include: Patient is in no acute distress and exam is entirely benign. Rectal exam shows small nonbleeding internal hemorrhoids. Blood pressure remains relatively low considering she reports typical blood pressures are in the 160-180 systolic range. Lab Test results independently reviewed as above. Pertinent findings: CBC is reassuring. H and H is 13.2 and 39.7 Chemistries are reassuring, normal renal and liver function. No electrolyte abnormalities Treatments: 1 Mg of Ativan to help with anxiety over IV start. Discussion: 54-year-old woman presents with rectal bleeding. At this point no sign of anemia, exam is most consistent with internal hemorrhoids. Blood pressure has improved appropriately. I have asked her to continue to check blood pressures at home, if she truly is using significantly less methamphetamine she may need less hypertensive medication. Also shared with her that her liver studies and kidney function was very reassuringly normal today which means getting into outpatient detox in getting rid of the alcohol now is a perfect time to stop drinking. Questions are answered, there was no indication for additional imaging or hospitalization and she is discharged Discharge Plan Departure Patient Disposition: Home Clinical Impression: Bright red rectal bleeding, Hemorrhoids, internal Instructions: DI for Hemorrhoids Activity Restrictions/Additional Instructions: There was no sign of significant bleeding with your blood work I suspect that you have internal hemorrhoids that are causing the blood that you are experiencing. I have given you a prescription for some steroid cream that goes inside your rectum to help reduce swelling and inflammation. Your liver function tests and kidney studies all look nice and normal. That is very reassuring sign that this is a perfect time to follow through with your plans on getting into an alcohol detox program and additional treatment. Please do keep track of your blood pressures at home. you will need to review them with your primary care physician If you find that you are getting worse or develop any new symptoms, please feel free to return to the emergency department for further evaluation. Prescriptions: New hydrocortisone [Anusol-HC] 2.5 % cream with perineal applicator 1 applic AK QD-BID PRN (Reason: hemorrhoids) Qty: 30 0RF No Action omeprazole 20 mg capsule,delayed release(DR/EC) 20 mg PO DAILY Qty: 90 1RF hydrochlorothiazide 25 mg tablet 25 mg PO DAILY Qty: 90 3RF lisinopril 40 mg tablet 40 mg PO DAILY Qty: 90 3RF metronidazole 1 % gel 1 applic topical DAILY buspirone 15 mg tablet 15 mg PO TID Qty: 90 2RF metoprolol succinate 25 mg tablet extended release 24 hr 25 mg PO DAILY Qty: 30 3RF gabapentin 300 mg capsule 300 mg PO BEDTIME Qty: 90 1RF duloxetine 60 mg capsule,delayed release(DR/EC) 120 mg PO QAM Qty: 180 1RF Referrals: Anant,Hany, BRIM SETTER [Primary Care Provider] - Stand Alone Forms: Patient Portal/API/Survey
[2024-05-11] MEDS: LORazepam 0.5 MG TABLET 1 MG PO (11:43)
--- NOTE | 2024-05-11 12:16 | PC.NURSE ---
Unsuccessful IV attempt. Pt declining IV at this time,requesting blood draw only.
[2024-05-11 12:40] LABS: Add Manual Diff / Slide Review NO; Basophils Absolute Auto 100 /uL (0-100); Basophils Percent Auto 0.8 % (0-2); Eosinophils Absolute Auto 500 /uL (0-450); Eosinophils Percent Auto 5.5 % (2-4); Hematocrit 39.7 % (36-46); Hemoglobin 13.2 g/dL (12.0-16.0); Lymphocytes Absolute Auto 3400 /uL (1100-4500); Lymphocytes Percent Auto 39.7 % (25-40); Mean Corpuscular HGB Conc 33.4 % (30-36); Mean Corpuscular Hemoglobin 30.2 PG (26-34); Mean Corpuscular Volume 90.5 fL (80-100); Monocytes Absolute Auto 800 /uL (0-900); Monocytes Percent Auto 8.8 % (3-14); Neutrophils Absolute Auto 3900 /uL (1500-7000); Neutrophils Percent Auto 45.2 % (50-75); Platelet Count 274 X10^3/uL (150-400); Red Blood Cell Count 4.38 X10^6/uL (4.0-5.2); Red Cell Distribution Width 13.2 % (11.6-14.8); White Blood Cell Count 8.6 X10^3/uL (4.5-11.0)
[2024-05-11 12:48] LABS: Alanine Aminotransferase 24 IU/L (<35); Albumin 3.9 g/dL (3.5-5.0); Albumin Globulin Ratio 1.3 (1.0-2.8); Alkaline Phosphatase 124 U/L (38-126); Aspartate Aminotransferase 30 IU/L (14-36); BUN Creatinine Ratio 28.6 (6-22); Bilirubin Total 0.4 mg/dL (0.2-1.3); Blood Urea Nitrogen 26 mg/dL (7-17); Calcium 9.3 mg/dL (8.4-10.2); Carbon Dioxide 26 mmol/L (22-32); Chloride 106 mmol/L (98-107); Estimated Glomerular Filt Rate > 60 mL/min (>60); Ethanol (ETOH) < 10 mg/dL; Globulin 3.1 g/dL (1.7-4.1); Glucose 98 mg/dL (70-100); HEMOLYSIS < 15 (0-50); Lactate (Lactic Acid) 0.8 mmol/L (0.7-2.1); Lipase 110 U/L (23-300); Sodium 137 mmol/L (137-145)
== END 2024-05-11 13:38 | disposition home or self-care (01) ==
PROVIDERS: Emergency Provider Emergency Medicine; Family Provider Physician Assistant; PCP Registered Nurse Diabetes Educator
DX: K62.5 Hemorrhage of anus and rectum (principal); K64.8 Other hemorrhoids; F10.90 Alcohol use, unspecified, uncomplicated; I10 Essential (primary) hypertension; F15.90 Other stimulant use, unspecified, uncomplicated; F41.9 Anxiety disorder, unspecified; F32.A Depression, unspecified; F17.200 Nicotine dependence, unspecified, uncomplicated; Y90.0 Blood alcohol level of less than 20 mg/100 ml
CPT/HCPCS: 36415; 80053; 80320; 83605; 83690; 83735; 85025; 86850; 86900; 86901; 99283

== ENCOUNTER → 2024-06-11 15:14 | Outpatient (CLI) | payer OTHER, MEDICAID, SELFPAY ==
[2024-06-11 16:50] LABS: Hematocrit 44.8 % (36-46); Hemoglobin 14.8 g/dL (12.0-16.0); Mean Corpuscular HGB Conc 32.9 % (30-36); Mean Corpuscular Hemoglobin 30.3 PG (26-34); Mean Corpuscular Volume 91.9 fL (80-100); Platelet Count 352 X10^3/uL (150-400); Red Blood Cell Count 4.87 X10^6/uL (4.0-5.2)
[2024-06-11 17:06] LABS: Hemoglobin A1C% w Est Avg Glu 5.6 % (4.0-6.0)
[2024-06-11 17:49] LABS: Alanine Aminotransferase 25 IU/L (<35); Albumin 4.5 g/dL (3.5-5.0); Albumin Globulin Ratio 1.3 (1.0-2.8); Alkaline Phosphatase 122 U/L (38-126); Aspartate Aminotransferase 32 IU/L (14-36); Bilirubin Total 0.3 mg/dL (0.2-1.3); Blood Urea Nitrogen 18 mg/dL (7-17); Calcium 9.2 mg/dL (8.4-10.2); Carbon Dioxide 26 mmol/L (22-32); Chloride 104 mmol/L (98-107); Cholesterol 243 mg/dL (140-199); Estimated Glomerular Filt Rate > 60 mL/min (>60); Globulin 3.5 g/dL (1.7-4.1); Glucose 82 mg/dL (70-100); HDL Cholesterol 87 mg/dL (40-60); HEMOLYSIS < 15 (0-50); LDL Cholesterol Calculated 103 mg/dL (<100); Potassium 3.9 mmol/L (3.4-5.1); Sodium 137 mmol/L (137-145); Triglycerides 264 mg/dL (35-150)
[2024-06-11 18:40] LABS: Hepatitis B Surface Antigen NEGATIVE s/c (NEGATIVE)
[2024-06-11 19:01] LABS: HIV 1 & 2 Ab/Ag 4th Gen Combo NEGATIVE (NEGATIVE); Hep C Virus Ab w/Reflex Quant NEGATIVE s/c (NEGATIVE)
[2024-06-13 23:35] LABS: Hepatitis Be Antibody Reactive (Negative)
== END ==
PROVIDERS: Family Provider Physician Assistant; PCP Registered Nurse Diabetes Educator; Referring Provider Registered Nurse Diabetes Educator; Visit Provider Registered Nurse Diabetes Educator
DX: I10 Essential (primary) hypertension (principal); E78.5 Hyperlipidemia, unspecified; R73.03 Prediabetes; R89.9 Unspecified abnormal finding in specimens from other organs, systems and tissues; R73.09 Other abnormal glucose; W46.1XXA Contact with contaminated hypodermic needle, initial encounter; X58.XXXA Exposure to other specified factors, initial encounter
CPT/HCPCS: 80053; 80061; 83036; 84443; 85027; 86707; 86803; 87340; 87389

== ENCOUNTER → 2024-08-02 16:18 | Outpatient (CLI) | payer OTHER, SELFPAY ==
--- NOTE | 2024-08-02 16:19 | DI.MG.S_ITS ---
BILATERAL DIGITAL SCREENING MAMMOGRAM 3D/2D WITH CAD: 08/02/2024 CLINICAL: Routine screening. Family history of breast cancer. Comparison is made to exams dated: 04/21/2015 mammogram, 02/12/2014 mammogram, and 02/09/2011 mammogram - [facility]. The breasts are almost entirely fatty (category a/<25% glandular tissue). Current study was also evaluated with a Computer Aided Detection (CAD) system. No significant masses, calcifications, or other findings are seen in either breast. There has been no significant interval change. IMPRESSION: NEGATIVE There is no mammographic evidence of malignancy. A 1 year screening mammogram is recommended. Based on the Tyrer Cuzick model (a risk assessment model) the patient's lifetime risk is 5.6% and her 10 year risk is 1.4%. According to the ACR, ACS, and NCCN guidelines, an annual breast MRI exam along with mammogram is recommended if the patient's lifetime risk is 20% or greater. This exam was interpreted at Station ID: [id number]. NOTE: For mammograms, a report in lay terms will be sent to the patient. Approximately 15% of breast malignancies will not be visualized mammographically. In the management of a palpable breast mass, a negative mammogram must not discourage biopsy of a clinically suspicious lesion. Electronically Signed By: James reese/enzo:08/04/2024 14:32:57 letter sent: Normal Exam ACR BI-RADS Category 1: Negative
== END ==
PROVIDERS: Family Provider Physician Assistant; PCP Registered Nurse Diabetes Educator; Referring Provider Registered Nurse Diabetes Educator; Visit Provider Registered Nurse Diabetes Educator
DX: Z12.31 Encounter for screening mammogram for malignant neoplasm of breast (principal); Z80.3 Family history of malignant neoplasm of breast; R92.313 Mammographic fatty tissue density, bilateral breasts
CPT/HCPCS: 77063; 77067